=== PATIENT | male | born 1995 | race Two or more races ===

== ENCOUNTER 2018-10-22 11:46 | Emergency (ER) | payer OTHER ==
[~2018-10-22] VITALS: Ht 185.4 cm; Wt 77.3 kg
--- NOTE | 2018-10-22 12:20 | NUR ---
chest pain x 1 week. SUBSTERNAL TO LEFT SHOULDER DENIES MEDICAL HX/ILLICITS/EXCESSIVE CAFFIENE/TRAUMA REPORTS RECENT STRESS REGARDING WORK/LIFE BALANCE
[2018-10-22 13:00] VITALS: BP 111/52
--- NOTE | 2018-10-22 13:05 | NUR ---
WITH REASSESSMENT- PATIENT REPORT CHEST/SHOULDER REMAINS AT 2/10 VITALS STABLE ON MONITOR UPDATED ON ESTIMATED POC (DISPO)
== END 2018-10-22 13:38 | disposition home or self-care (01) ==
LOC: ED 13:10
DX: R07.89 Other chest pain (principal)
CPT/HCPCS: 71045; 93005; 99283